=== PATIENT | female | born 1965 | race Caucasian/White ===

== ENCOUNTER 2018-03-15 16:33 | Emergency (ER) | payer MEDICAID ==
[2018-03-15] MEDS ORDERED: RANITIDINE HCL150 M1 PO (16:46)
[2018-03-15] MEDS ORDERED: LIDOCAINE PAIN1 EACH TP (16:47)
[2018-03-15] MEDS ORDERED: ZOFRAN ODT4 MG PO (16:47)
[2018-03-15] MEDS ORDERED: MAGNESIUM OXID200 MG PO (16:47)
[2018-03-15 17:53] LABS: HEMATOCRIT 26.4 % (37.0-47.0); HEMOGLOBIN 8.4 g/dL (12.5-16.0); MEAN CELL VOLUME 89 fl (78-100); MEAN CORPUSCULAR HEMOGLOBIN 28 pg (27-31); MEAN CORPUSCULAR HGB CONC 32 g/dL (33-37); MEAN PLATELET VOLUME 9.1 fl (7.4-10.4); PLATELET COUNT 222 K/mm3 (130-400); RED BLOOD COUNT 2.96 M/mm3 (4.10-5.30); WHITE BLOOD COUNT 6.6 K/mm3 (4.8-10.8)
[2018-03-15 18:03] LABS: PROTHROMBIN TIME 8.7 SECONDS (9.0-12.0)
[2018-03-15 18:04] LABS: ALBUMIN 3.4 g/dL (3.5-5.0); BUN/CREATININE RATIO 8.2 (6.0-26.0); CALCIUM 8.6 mg/dL (8.4-10.2); POTASSIUM 4.1 mmol/L (3.6-5.0); TOTAL BILIRUBIN 0.2 mg/dL (0.2-1.3); TOTAL PROTEIN 6.4 g/dL (6.3-8.2)
[2018-03-15 18:11] LABS: CKMB ISOENZYME 2.2 ng/mL (0.6-3.5)
[2018-03-15 18:13] LABS: LYMPHOCYTE 9 % (20-51); MONOCYTE 10 % (3-10); NEUTROPHILS 81 % (42-75); RED CELL DISTRIBUTION WIDTH 21.1 % (11.5-14.5)
[2018-03-15 18:16] LABS: TROPONIN-I < 0.03 ng/mL (0.00-0.06)
[2018-03-15] MEDS ORDERED: PERCOCET 325 MG1 TA5 PO (19:44)
[2018-03-15 19:45] VITALS: BP 166/114
== END 2018-03-15 19:59 | disposition left against medical advice (07) ==
LOC: ED 16:33
PROVIDERS: Nurse Practitioner Primary Care
DX: R51 Headache (principal); Z53.21 Procedure and treatment not carried out due to patient leaving prior to being seen by health care provider; M79.622 Pain in left upper arm; I16.0 Hypertensive urgency; C53.9 Malignant neoplasm of cervix uteri, unspecified; F17.200 Nicotine dependence, unspecified, uncomplicated; Z92.3 Personal history of irradiation; Z79.899 Other long term (current) drug therapy
CPT/HCPCS: J1885; J2270